=== PATIENT | male | born 2000 | race Caucasian/White ===

== ENCOUNTER 2018-08-21 18:47 | Emergency (ER) | payer MEDICAID, OTHER ==
[2018-08-21 19:22] VITALS: BP 145/99; PULSE 84; O2SAT 98
--- NOTE | 2018-08-21 19:36 | ERPHSYRPT ---
- History of Present Illness Time Seen by Provider: 08/21/18 19:29 Source: patient, family Exam Limitations: no limitations Patient Subjective Stated Complaint: pt states he was getting off work tonight and took a drink and felt like there was something stuck in the back of his throat; pt has had a recent h/o tonsil stones and thought that was what it was; pt looked in the back of his throat and has something on the far back of his tongue at the proximal opening of the throat. Triage Nursing Assessment: pt a&o x3; skin p, w, & d; pt presents very anxious and concerned; denies any difficulty swallowing or breathing; ambulated to room per self; family at bedside. Physician History: pt has no instance of choking, no fever, no nodes- but does feel something in throat . discussed risk. benefit with pt and he declines CT, will have soft tissue film; declines other w/u at this itme and has the capacity to make these choices with normal mental status; no FB seen on throat exam , nontender , soft digastric tringle and floor of mouth; no meningismus; no rash ; Timing/Duration: abrupt onset Severity: mild ENT Location: throat Prearrival Treatment: no prearrival treatment Modifying Factors: Improves With: nothing Associated Symptoms: sore throat, No cough, No fever, No chills, No drooling, No facial pain/swelling, No headache, No nasal congestion/drainage, No neck pain , No swollen glands, No sinus infection, No tooth pain, No difficulty swallowing , No voice change Allergies/Adverse Reactions: Penicillins Allergy (Intermediate, Verified 08/21/18 19:22) Hives Home Medications: No Reportable Medications [No Reported Medications] 08/21/18 [History] Hx Tetanus, Diphtheria Vaccination/Date Given: Yes Hx Influenza Vaccination/Date Given: No Hx Pneumococcal Vaccination/Date Given: Yes Immunizations Up to Date: No - Review of Systems Constitutional: No Fever, No Chills Eyes: No Symptoms Ears, Nose, & Throat: No Symptoms, Other (feels like something in throat), No Throat Pain, No Throat Swelling, No Hoarse, No Painful Swallowing Respiratory: No Cough, No Dyspnea Cardiac: No Chest Pain, No Edema, No Syncope Abdominal/Gastrointestinal: No Abdominal Pain, No Nausea, No Vomiting, No Diarrhea Genitourinary Symptoms: No Dysuria Musculoskeletal: No Back Pain, No Neck Pain Skin: No Rash Neurological: No Dizziness, No Focal Weakness, No Sensory Changes Psychological: No Symptoms Endocrine: No Symptoms All Other Systems: Reviewed and Negative - Past Medical History Pertinent Past Medical History: Yes Neurological History: No Pertinent History ENT History: No Pertinent History Cardiac History: Other Respiratory History: Other Endocrine Medical History: No Pertinent History Musculoskeletal History: No Pertinent History GI Medical History: No Pertinent History History: No Pertinent History Psycho-Social History: Anxiety Male Reproductive Disorders: No Pertinent History Other Medical History: PULMONARY STENOSIS - Past Surgical History Past Surgical History: No - Social History Smoking Status: Never smoker Exposure to second hand smoke: Yes Alcohol Use: None Drug Use: none Patient Lives Alone: No Significant Family History: no pertinent family hx - Nursing Vital Signs Nursing Vital Signs: Initial Vital Signs Temperature 97.8 F 08/21/18 19:09 Pulse Rate 84 08/21/18 19:09 Respiratory Rate 26 H 08/21/18 19:09 Blood Pressure 145/99 08/21/18 19:09 O2 Sat by Pulse Oximetry 98 08/21/18 19:09 Pain Scale Pain Intensity 0 - Physical Exam General Appearance: no apparent distress, alert Eye Exam: bilateral eye: normal inspection, PERRL, EOMI Ear Exam: bilateral ear: auricle normal, canal normal, TM normal Nasal Exam: normal inspection Throat Exam: normal, pharynx normal, moist mucus membranes, No dental tenderness , No excessive drooling, No foreign body, No mandibular swelling, No maxillary swelling, No tonsillar exudate Neck Exam: normal inspection, non-tender, supple, full range of motion, trachea midline Cardiovascular/Respiratory Exam: normal breath sounds, regular rate/rhythm Abdominal Exam: non-tender, soft Neurologic Exam: alert, oriented x 3, sensation nml, No motor deficits Skin Exam: normal color, warm, dry SpO2 Interpretation: normal SpO2: 98 - Course Nursing assessment & vital signs reviewed: Yes - Radiology Exams Other X-ray Interpretation: Reviewed by Kevin aroral Soft Tissues Ordered Tests: Active Orders 24 hr Category Date Time Status NECK SOFT TISSUE Stat Exams 08/21/18 19:39 Taken Medication Summary Discontinued Medications Generic Name Dose Route Start Last Admin Trade Name Freq PRN Reason Stop Dose Admin Lorazepam 1 mg 08/21/18 19:41 10/20/18 19:44 Ativan 1 Mg PO 08/21/18 19:42 1 mg STAT ONE Administration Lorazepam Confirm 08/21/18 19:43 Ativan 1 Mg Administered 08/21/18 19:44 Dose 1 mg .ROUTE .STK-MED ONE - Progress Progress: improved, re-examined Progress Note: 08/21/18 20:16 pt advised of limitations of evel performed and that undetected pathology may be evolving thus with need for f/u as advised; he prefers outpt f/u rathrer than further w/u in ER and that is reasonable given his degree of symptoms at this time and he has the capacity to make this choice; Counseled pt/family regarding: diagnosis, need for follow-up, rad results - Departure Time of Disposition: 20:10 Departure Disposition: Home Clinical Impression: Throat symptom Condition: Good Critical Care Time: No Referrals: JULIUS STONE MD [Primary Care Provider] - Additional Instructions: followup with your Dr[facility]te for further evaluation of symptoms- final radiologist reading will be performed on Thursday. Return meantime if any problems swallowing or other concerns;
[2018-08-21] MEDS ORDERED: Ativan 1 MG PO ONE (19:41)
[2018-08-21] MEDS ORDERED: Ativan 1 MG ONE (19:43)
--- NOTE | 2018-08-21 22:28 | XRAY ---
Indication: Possible foreign body. Comparison: None AP/lateral soft tissue neck demonstrates a few dental amalgams. Otherwise negative for radiopaque foreign body. No bony, articular, or soft tissue abnormalities.
== END 2018-08-21 20:23 | disposition home or self-care (01) ==
LOC: ED 18:47
DX: R09.89 Other specified symptoms and signs involving the circulatory and respiratory systems (principal); F41.9 Anxiety disorder, unspecified
CPT/HCPCS: 70360; 99283; A9270-GY

== ENCOUNTER 2023-01-11 12:24 | Emergency (ER) | payer OTHER ==
[2023-01-11] MEDS ORDERED: TORAdol 30 mg Injection IV ONE ×2 (12:47→14:34)
[2023-01-11] MEDS ORDERED: Sodium Chloride 0.9% 1000 ML 1,000 ML IV STA (12:47)
[2023-01-11 12:51] LABS: Appearance Clear (Clear); Bacteria None Seen /HPF (None Seen); Bilirubin Negative (Negative); Blood Negative (Negative); Epithelial Cells None Seen /HPF (None Seen); Glucose, Urine Negative (Negative); Hyaline Casts NONE SEEN /LPF (0-2); Ketones Negative (Negative); Leukocyte Esterase Negative (Negative); Nitrite Negative (Negative); Ph 8.5 (4.6-8.0); Protein,Urine Dip Negative (Negative); RBC 0-2 /HPF (0-5); Urobilinogen 0.2 mg/dL (0.2); WBC 0-2 /HPF (0-5)
[2023-01-11 12:54] LABS: ADD URINE CULTURE? NO (NO)
[2023-01-11 13:00] VITALS: BP 129/72; O2SAT 97
[2023-01-11 13:02] LABS: Amphetamine,Urine NEGATIVE (NEGATIVE); Barbiturate,Urine NEGATIVE (NEGATIVE); Benzodiazepine,Urine NEGATIVE (NEGATIVE); Cocaine,Urine NEGATIVE (NEGATIVE); Methadone,Urine NEGATIVE (NEGATIVE); Opiate,Urine NEGATIVE (NEGATIVE); PCP,Urine NEGATIVE (NEGATIVE); THC,Urine NEGATIVE (NEGATIVE)
[2023-01-11] MEDS ORDERED: Sodium Chloride 0.9% 1000 ML 1,000 ML ONE (13:09)
[2023-01-11] MEDS ORDERED: TORAdol 30 mg Injection ONE ×2 (13:09→14:53)
[2023-01-11 13:21] LABS: Absolute Neutrophil Ct (ANC) 11.62 x10^3/uL (1.4-6.9); BASOPHIL % 0.2 % (0.0-0.4); Basophil (Absolute #) 0.02 x10^3/uL (0-0.4); Eosinophil % 0.1 % (0.00-5.0); Eosinophil (Absolute #) 0.01 x10^3/uL (0-0.5); Hematocrit 45.9 % (42-50); Hemoglobin 15.4 g/dL (12.5-18.0); IMMATURE GRAN # 0.04 x10^3u/L (0.00-0.03); IMMATURE GRAN % 0.3 % (0.00-0.4); Lymphocyte (Absolute #) 0.92 x10^3/uL (1.0-4.6); Mean Cell Volume 88.6 fL (78-100); Mean Corpuscular Hemoglobin 29.7 pg (26-32); Mean Corpuscular Hgb Concent. 33.6 g/dL (32-36); Mean Platelet Volume 10.7 fL (7.5-11.0); Monocyte (Absolute #) 0.59 x10^3/uL (0.0-1.3); Monocytes % 4.5 % (0.0-12.0); Neutrophil % 87.9 % (36.0-66.0); Platelet Count 192 x10^3/uL (150-450); Red Blood Count 5.18 x10^6/uL (4.1-5.6); Red Cell Distribution Width 11.9 % (11.5-14.0); White Blood Count 13.2 x10^3/uL (4.0-10.5)
--- NOTE | 2023-01-11 13:26 | ERPHSYRPT ---
- History of Present Illness Time Seen by Provider: 01/11/23 13:24 Source: patient, family Exam Limitations: no limitations Patient Subjective Stated Complaint: flank pain, back pain. Triage Nursing Assessment: pt to ED c/o lower bilateral back pain x 1 week approx. pt stated that today he has been freezing cold and cant get warm. had 1 dose ibuprofen this morning with no relief. pt states that as a child he used to get kidney infections. Physician History: Patient is 22-year-old male with significant past medical history of childhood kidney infection started having generalized body ache backache for 1 week but to day he started having a fever with chills. So he came to the emergency room. He denies any burning urination nausea vomiting diarrhea chest pain shortness of breath. His main complaint is severe headache. Patient did not have this type of symptoms in the past. Timing/Duration: week(s) (one week) Fever Severity: moderate Fever Therapy [employer]: Ibuprofen Associated Symptoms: headache, muscle aches, No abdominal pain, No chest pain, No confusion, No cough, No nausea/vomiting, No rash, No rhinorrhea, No shortness of breath, No sore throat, No stiff neck, No syncope, No weakness Allergies/Adverse Reactions: Penicillins Allergy (Intermediate, Verified 08/21/18 19:22) Hives Hx Tetanus, Diphtheria Vaccination/Date Given: Yes Hx Influenza Vaccination/Date Given: No Hx Pneumococcal Vaccination/Date Given: Yes Immunizations Up to Date: Yes Travel Risk - International Travel Have you traveled outside of the country in past 3 weeks: No - Coronavirus Screening Are you exhibiting any of the following symptoms?: Yes Symptoms: Fever, Headaches/Body Aches/Fatigue Close contact with a COVID-19 positive Pt in past 14-21 Days: No - Vaccine Status Have you recieved a Covid-19 vaccination: No - Review of Systems Constitutional: Fever, Chills, Fatigue Eyes: No Symptoms Ears, Nose, & Throat: No Symptoms Respiratory: No Cough, No Dyspnea Cardiac: No Chest Pain, No Edema, No Syncope Abdominal/Gastrointestinal: No Abdominal Pain, No Nausea, No Vomiting, No Diarrhea Genitourinary Symptoms: No Dysuria Musculoskeletal: Back Pain, No Neck Pain Skin: No Rash Neurological: No Dizziness, No Focal Weakness, No Sensory Changes Psychological: No Symptoms Endocrine: No Symptoms All Other Systems: Reviewed and Negative - Past Medical History Pertinent Past Medical History: Yes Neurological History: No Pertinent History ENT History: No Pertinent History Cardiac History: Other Respiratory History: Other Endocrine Medical History: No Pertinent History Musculoskeletal History: No Pertinent History GI Medical History: No Pertinent History History: No Pertinent History Psycho-Social History: Anxiety Male Reproductive Disorders: No Pertinent History Other Medical History: PULMONARY STENOSIS - Past Surgical History Past Surgical History: No - Social History Smoking Status: Never smoker Exposure to second hand smoke: No Alcohol Use: None Drug Use: none Patient Lives Alone: No Significant Family History: no pertinent family hx - Nursing Vital Signs Nursing Vital Signs: Initial Vital Signs Temperature 103.1 F 01/11/23 12:33 Pulse Rate 97 H 01/11/23 12:33 Respiratory Rate 20 01/11/23 12:33 Blood Pressure 129/72 01/11/23 12:33 O2 Sat by Pulse Oximetry 97 01/11/23 12:33 Pain Scale Pain Intensity [Lower 10 Posterior Back] Pain Intensity 8 - Physical Exam General Appearance: mild distress, alert Eye Exam: PERRL/EOMI ENT Exam: normal ENT inspection, No pharyngeal erythema, No tonsillar exudate Neck Exam: supple, full range of motion, No meningismus Respiratory Exam: normal breath sounds, lungs clear, no respiratory distress Cardiovascular/Chest Exam: normal heart sounds, regular rate/rhythm, No murmur, No edema Gastrointestinal/Abdominal Exam: soft, non tender, no distention Extremity Exam: non-tender, normal range of motion, normal inspection, normal capillary refill Neurologic Exam: alert, oriented x 3, cooperative, babcock tester II-XII nml as tested, normal mood/affect, sensation nml, No motor deficits Skin Exam: normal color, warm, dry, No rash SpO2: 97 - Course Nursing assessment & vital signs reviewed: Yes - Radiology Exams Chest X-ray Interpretation: Reviewed by me, Negative, No Pneumonia L-Spine X-ray Interpretation: Reviewed by me, Negative, No Fracture Ordered Tests: Active Orders 24 hr Category Date Time Status CHEST 2 VIEWS (PA AND LAT) Stat Exams 01/11/23 12:49 Taken LUMBAR LIMITED (2 OR 3 VIEWS) Stat Exams 01/11/23 12:40 Taken CBC W DIFF Stat Lab 01/11/23 13:17 Completed CMP Stat Lab 01/11/23 13:17 Completed UA W/RFX UR CULTURE Stat Lab 01/11/23 12:40 Completed Urine Triage Profile Stat Lab 01/11/23 12:40 Completed Medication Summary Discontinued Medications Generic Name Dose Route Start Last Admin Trade Name Evangelina PRN Reason Stop Dose Admin Sodium Chloride 1,000 mls @ 999 mls/hr 01/11/23 12:47 01/11/23 14:25 Sodium Chloride 0.9% 1000 Ml IV 01/11/23 13:47 Infused .Q1H1M STA Infusion Sodium Chloride Confirm 01/11/23 13:09 Sodium Chloride 0.9% 1000 Ml Administered 01/11/23 13:10 Dose 1,000 mls @ ud .ROUTE .STK-MED ONE Ceftriaxone Sodium/Dextrose 1 g in 50 mls @ 100 mls/hr 01/11/23 13:27 01/11/23 14:25 Rocephin 1 Gm-D5w 50 Ml Bag IV 01/11/23 13:56 Infused STAT STA Infusion Ceftriaxone Sodium/Dextrose Confirm 01/11/23 13:37 Rocephin 1 Gm-D5w 50 Ml Bag Administered 01/11/23 13:38 Dose 1 g in 50 mls @ ud IV .STK-MED ONE Ketorolac Tromethamine 30 mg 01/11/23 12:47 01/11/23 13:22 Ketorolac Tromethamine 30 Mg/Ml Inj IV 01/11/23 12:48 30 mg STAT ONE Administration Ketorolac Tromethamine Confirm 01/11/23 13:09 Ketorolac Tromethamine 30 Mg/Ml Inj Administered 01/11/23 13:10 Dose 30 mg .ROUTE .STK-MED ONE Lab/Rad Data: Laboratory Result Diagrams 01/11/23 13:17 01/11/23 13:17 Laboratory Results 01/11/23 01/11/23 01/11/23 Range/Units 13:17 13:17 12:53 WBC 13.2 H (4.0-10.5) x10^3/uL RBC 5.18 (4.1-5.6) x10^6/uL Hgb 15.4 (12.5-18.0) g/dL Hct 45.9 (42-50) % MCV 88.6 (78-100) fL MCH 29.7 (26-32) pg MCHC 33.6 (32-36) g/dL RDW 11.9 (11.5-14.0) % Plt Count 192 (150-450) x10^3/uL MPV 10.7 (7.5-11.0) fL Gran % 87.9 H (36.0-66.0) % Immature Gran % (Auto) 0.3 (0.00-0.4) % Nucleat RBC Rel Count 0.0 (0.00-0.1) % Eos # (Auto) 0.01 (0-0.5) x10^3/uL Immature Gran # (Auto) 0.04 H (0.00-0.03) x10^3u/L Absolute Lymphs (auto) 0.92 L (1.0-4.6) x10^3/uL Absolute Monos (auto) 0.59 (0.0-1.3) x10^3/uL Absolute Nucleated RBC 0.00 (0.00-0.01) x10^3u/L Lymphocytes % 7.0 L (24.0-44.0) % Monocytes % 4.5 (0.0-12.0) % Eosinophils % 0.1 (0.00-5.0) % Basophils % 0.2 (0.0-0.4) % Absolute Granulocytes 11.62 H (1.4-6.9) x10^3/uL Basophils # 0.02 (0-0.4) x10^3/uL Sodium 139 (137-145) mmol/L Potassium 3.6 (3.5-5.1) mmol/L Chloride 102 (98-107) mmol/L Carbon Dioxide 25 (22-30) mmol/L Anion Gap 15.8 H (5-15) MEQ/L BUN 12 (9-20) mg/dL Creatinine 1.01 (0.66-1.25) mg/dL Estimated GFR > 60.0 ML/MIN Glucose 102 (74-106) mg/dL Calcium 9.5 (8.4-10.2) mg/dL Total Bilirubin 1.00 (0.2-1.3) mg/dL AST 29 (17-59) U/L ALT 28 (0-50) U/L Alkaline Phosphatase 94 (38-126) U/L Serum Total Protein 9.0 H (6.3-8.2) g/dL Albumin 5.0 (3.5-5.0) g/dL Urine Color (Yellow) Urine Appearance (Clear) Urine pH (4.6-8.0) Ur Specific [place] (1.005-1.030) Urine Protein (Negative) Urine Glucose (UA) (Negative) mg/dL Urine Ketones (Negative) Urine Blood (Negative) Urine Nitrite (Negative) Urine Bilirubin (Negative) Urine Urobilinogen (0.2) mg/dL Ur Leukocyte Esterase (Negative) U Hyaline Cast (Auto) (0-2) /LPF Urine Microscopic RBC (0-5) /HPF Urine Microscopic WBC (0-5) /HPF Ur Epithelial Cells (None Seen) /HPF Urine Bacteria (None Seen) /HPF Urine Culture Reflexed (NO) Urine Opiates Level (NEGATIVE) Ur Methadone (NEGATIVE) Urine Barbiturates (NEGATIVE) Ur Phencyclidine (PCP) (NEGATIVE) Urine Amphetamine (NEGATIVE) U Benzodiazepine Level (NEGATIVE) Urine Cocaine (NEGATIVE) Urine Marijuana (THC) (NEGATIVE) Influenza Type A Ag NEGATIVE (NEGATIVE) Influenza Type B Ag NEGATIVE (NEGATIVE) RSV (PCR) NEGATIVE (Negative) SARS-CoV-2 (PCR) NEGATIVE (NEGATIVE) 01/11/23 01/11/23 Range/Units 12:40 12:40 WBC (4.0-10.5) x10^3/uL RBC (4.1-5.6) x10^6/uL Hgb (12.5-18.0) g/dL Hct (42-50) % MCV (78-100) fL MCH (26-32) pg MCHC (32-36) g/dL RDW (11.5-14.0) % Plt Count (150-450) x10^3/uL MPV (7.5-11.0) fL Gran % (36.0-66.0) % Immature Gran % (Auto) (0.00-0.4) % Nucleat RBC Rel Count (0.00-0.1) % Eos # (Auto) (0-0.5) x10^3/uL Immature Gran # (Auto) (0.00-0.03) x10^3u/L Absolute Lymphs (auto) (1.0-4.6) x10^3/uL Absolute Monos (auto) (0.0-1.3) x10^3/uL Absolute Nucleated RBC (0.00-0.01) x10^3u/L Lymphocytes % (24.0-44.0) % Monocytes % (0.0-12.0) % Eosinophils % (0.00-5.0) % Basophils % (0.0-0.4) % Absolute Granulocytes (1.4-6.9) x10^3/uL Basophils # (0-0.4) x10^3/uL Sodium (137-145) mmol/L Potassium (3.5-5.1) mmol/L Chloride (98-107) mmol/L Carbon Dioxide (22-30) mmol/L Anion Gap (5-15) MEQ/L BUN (9-20) mg/dL Creatinine (0.66-1.25) mg/dL Estimated GFR ML/MIN Glucose (74-106) mg/dL Calcium (8.4-10.2) mg/dL Total Bilirubin (0.2-1.3) mg/dL AST (17-59) U/L ALT (0-50) U/L Alkaline Phosphatase (38-126) U/L Serum Total Protein (6.3-8.2) g/dL Albumin (3.5-5.0) g/dL Urine Color Yellow (Yellow) Urine Appearance Clear (Clear) Urine pH 8.5 A (4.6-8.0) Ur Specific [place] 1.010 (1.005-1.030) Urine Protein Negative (Negative) Urine Glucose (UA) Negative (Negative) mg/dL Urine Ketones Negative (Negative) Urine Blood Negative (Negative) Urine Nitrite Negative (Negative) Urine Bilirubin Negative (Negative) Urine Urobilinogen 0.2 (0.2) mg/dL Ur Leukocyte Esterase Negative (Negative) U Hyaline Cast (Auto) NONE SEEN (0-2) /LPF Urine Microscopic RBC 0-2 (0-5) /HPF Urine Microscopic WBC 0-2 (0-5) /HPF Ur Epithelial Cells None Seen (None Seen) /HPF Urine Bacteria None Seen (None Seen) /HPF Urine Culture Reflexed NO (NO) Urine Opiates Level NEGATIVE (NEGATIVE) Ur Methadone NEGATIVE (NEGATIVE) Urine Barbiturates NEGATIVE (NEGATIVE) Ur Phencyclidine (PCP) NEGATIVE (NEGATIVE) Urine Amphetamine NEGATIVE (NEGATIVE) U Benzodiazepine Level NEGATIVE (NEGATIVE) Urine Cocaine NEGATIVE (NEGATIVE) Urine Marijuana (THC) NEGATIVE (NEGATIVE) Influenza Type A Ag (NEGATIVE) Influenza Type B Ag (NEGATIVE) RSV (PCR) (Negative) SARS-CoV-2 (PCR) (NEGATIVE) - Progress Progress: improved, pain not gone completely Progress Note: 01/11/23 14:35 In the emergency room patient was given IV fluid IV antibiotic ceftriaxone as well as intravenously ketorolac 30 mg IV which did help him for his back pain as well as took 50% headache improvement. Patient fever also broke. Lab values are discussed with the patient and his significant others. Except for white blood cell count which is 13,500 all other labs are unremarkable including chest x-ray and x-ray of the lumbar spine. Patient is informed that he might have a some type of bacterial infection or viral infection, but we are unable to find out the source so at this point of time we are planning to treat each presumptively with antibiotic and symptomatic treatment for headache and fever. Patient understood all verbalized instruction. Counseled pt/family regarding: lab results, diagnosis, need for follow-up, rad results Medical Desision Making - Independent Historian Additional History obtained from: Family - Discussion of managment Reviewed:: Test results, Need for additional workup Agreed on:: Treatment plan, need for follow-up - Diagnostic Testing Diagnostic test were ordered, analyzed, and reviewed by me: Yes Radiological Interpretation: Interpreted by me, Reviewed by me - Risk of complications The pt has a mod risk of morbidity or mortality based on: Need for prescription drug management - Departure Departure Disposition: Home Clinical Impression: History of kidney infection Fever Qualifiers: Fever type: due to other condition Qualified Code(s): R50.81 - Fever presenting with conditions classified elsewhere Leucocytosis Qualifiers: Leukocytosis type: unspecified Qualified Code(s): D72.829 - Elevated white blood cell count, unspecified Condition: Stable Critical Care Time: Yes Critical Care Time(excluding separately billable procedures): Critical 75-104 mins Referrals: JULIUS STONE MD [Primary Care Provider] - Follow Up with PCP/3 days Instructions: Fever, Adult (DC) Additional Instructions: Discharge/Care Plan KATHI ARDON was seen on 01/11/23 in the Emergency Room. The patient was counseled regarding Diagnosis,Lab results, Imaging studies, need for follow up and when to return to the Emergency Room. Prescriptions given: Discharge Note I have spoken with the patient and/or caregivers. I have explained the patient's condition, diagnosis and treatment plan based on the information available to me at this time. I have answered the patient's and/or caregiver's questions and addressed any concerns. The patient and/or caregivers have as good understanding of the patient's diagnosis, condition and treatment plan as can be expected at this point. The vital signs have been stable. The patient's condition is stable and appropriate for discharge from the emergency department. The patient will pursue further outpatient evaluation with the primary care physician or other designated or consulting physician as outlined in the discharge instructions. The patient and/or caregivers are agreeable to this plan of care and follow-up instructions have been explained in detail. The patient and/or caregivers have received these instruction. The patient/and or caregivers are aware that any significant change in condition or worsening of symptoms should prompt an immediate return to this or the closest emergency department or call 911. KATHI ARDON was seen on 01/11/23 n the Emergency Room. At that time you were treated for an emergent condition, during your visit Laboratory, Radiology and/or other procedures may have been ordered. It is very important that you follow-up with your Primary Care Physician JULIUS STONE within the next 24- 48 hours to review your Emergency Room visit and the final results of testing that was ordered. Some test results such as Urine Cultures, Blood Cultures, and other cultures if ordered will not be finalized for 24-48 hours. If you do not have a Primary Care Provider please call the medical records department at [phone] to obtain a copy of your results or you may sign into our patient portal to obtain these results by visiting us @ [email or web address] and completing the following steps: 1. Click on the Patient Portal link 2. Click the Patient Self Enrollment Link to complete the enrollment form and entering your 3. Once the enrollment form is completed you will receive an email with a temporary ID and password at the email address you provided. 4. Next choose a user name and password. Your user name must be at least 4 characters long and your password must be at least 4 characters long. 5. Choose a security question from the list and provide your answer to the question. If you already have signed into the Health Portal you may access your Health Care Information 25/05 by the following steps: 1. Login to our website @ [email or web address] 2. Enter your original user name and password. FAQS The [facility] Health Portal is an online tool that contains your Lab Results, Radiology Reports, Visit History, Discharge Instructions and Health Summary Lab and Radiology Results will not be available for 72 hours on the portal. The Portal is a secure site, passwords are encryted and URLs are re-written so they cannot be copied and pasted. You and authorized family members are the only ones who can access your Portal. Also there is a timeout feature that protects your information if you leave the Portal page open. If you have technical difficulty please use the Contact Us link on the page this will allow you to submit any questions you have regarding the Portal or you may contact the Medical Record Department at [phone]. Prescriptions: Azithromycin [Azithromycin 250 mg Pack] 250 mg PO UD #6 tablet Naproxen 375 mg [Naprosyn 375 mg] 375 mg PO Q8H #30 tablet
[2023-01-11] MEDS ORDERED: ROCEPHIN 1 Gm-D5w 50 ml Bag** 1 G/50 ML IVPB IV STA (13:27)
[2023-01-11 13:32] LABS: ALKALINE PHOSPHATASE 94 U/L (38-126); ANION GAP 15.8 MEQ/L (5-15); BLOOD UREA NITROGEN 12 mg/dL (9-20); CHLORIDE 102 mmol/L (98-107); Calcium 9.5 mg/dL (8.4-10.2); Carbon Dioxide 25 mmol/L (22-30); Creatinine 1 1.01 mg/dL (0.66-1.25); EST GLOMERULAR FILTRATION RATE > 60.0 ML/MIN; Glucose 102 mg/dL (74-106); Potassium 3.6 mmol/L (3.5-5.1); SGOT/AST 29 U/L (17-59); SGPT/ALT 28 U/L (0-50); SODIUM 139 mmol/L (137-145)
[2023-01-11 13:32] LABS: INFLUENZA A NEGATIVE (NEGATIVE); INFLUENZA B NEGATIVE (NEGATIVE); RESPIRATORY SYNCTIAL VIRUS NEGATIVE (Negative); SARS-CoV-2 Xpert Express NEGATIVE (NEGATIVE)
[2023-01-11] MEDS ORDERED: ROCEPHIN 1 Gm-D5w 50 ml Bag** 1 G/50 ML IVPB IV ONE (13:37)
[2023-01-11] MEDS ORDERED: BENADRYL 50 MG/ML IV ONE (14:34)
[2023-01-11 14:53] VITALS: PULSE 92
[2023-01-11] MEDS ORDERED: BENADRYL 50 MG/ML ONE (14:53)
--- NOTE | 2023-01-11 19:17 | XRAY ---
Indication: Fever and chills. Comparison: March 25, 2012 PA/lateral chest again demonstrates normal heart, lungs, and bony thorax. New incidental left lower lobe calcified granuloma.
--- NOTE | 2023-01-11 19:17 | XRAY ---
Indication: Low back pain 1 week. No known injury. Comparison: None 3 view lumbar spine demonstrates 5 lumbar segments in normal alignment with vertebral body heights/disc spaces maintained. Mild fecal debris predominantly in right hemicolon. No other bony, articular, or soft tissue abnormalities.
== END 2023-01-11 15:11 | disposition home or self-care (01) ==
LOC: ED 12:24
DX: D72.829 Elevated white blood cell count, unspecified (principal); R50.9 Fever, unspecified; Z87.440 Personal history of urinary (tract) infections; R51.9 Headache, unspecified; M54.9 Dorsalgia, unspecified; Z28.310 Unvaccinated for COVID-19
CPT/HCPCS: 0241U; 36415; 71046; 72100; 80053; 80307; 81001; 85025; 96360; 96365; 96374; 96375; 96376; 99284; 99291; 99292; J0696; J1200; J1885

== ENCOUNTER 2024-05-30 19:28 | Emergency (ER) | payer OTHER ==
[2024-05-30 19:36] VITALS: TEMP 97.4
[2024-05-30] MEDS: BABY ASPIRIN 81 MG CHEW PO ONE (20:04)
[2024-05-30] MEDS ORDERED: BABY ASPIRIN 81 MG CHEW ONE (20:04)
[2024-05-30 20:08] LABS: Absolute Neutrophil Ct (ANC) 5.45 x10^3/uL (1.78-5.38); BASOPHIL % 0.2 % (0.2-1.2); Basophil (Absolute #) 0.02 x10^3/uL (0.01-0.08); Eosinophil % 2.7 % (0.8-7.0); Eosinophil (Absolute #) 0.22 x10^3/uL (0.04-0.54); Hematocrit 44.2 % (40.1-51.0); Hemoglobin 14.9 g/dL (13.7-17.5); IMMATURE GRAN # 0.02 x10^3u/L (0.001-0.031); IMMATURE GRAN % 0.2 % (0.001-0.429); Lymphocyte (Absolute #) 1.75 x10^3/uL (1.32-3.57); Lymphocytes % 21.5 % (21.8-53.1); Mean Cell Volume 87.9 fL (79.0-92.2); Mean Corpuscular Hemoglobin 29.6 pg (25.7-32.2); Mean Corpuscular Hgb Concent. 33.7 g/dL (32.3-36.5); Mean Platelet Volume 10.9 fL (9.4-12.4); Monocyte (Absolute #) 0.67 x10^3/uL (0.30-0.82); Monocytes % 8.2 % (5.3-12.2); Neutrophil % 67.2 % (34.0-67.9); Platelet Count 223 x10^3/uL (163-337); Red Blood Count 5.03 x10^6/uL (4.63-6.08); Red Cell Distribution Width 11.9 % (11.6-14.4); White Blood Count 8.1 x10^3/uL (4.23-9.07)
[2024-05-30 20:48] LABS: ALBUMIN 4.5 g/dL (3.5-5.0); ANION GAP 16.6 MEQ/L (5-15); BILIRUBIN,TOTAL 0.3 mg/dL (0.2-1.3); Calcium 9.7 mg/dL (8.4-10.2); Creatinine 1 0.98 mg/dL (0.66-1.25); EST GLOMERULAR FILTRATION RATE 109.1 ML/MIN; Potassium 3.7 mmol/L (3.5-5.1); Total Protein 7.6 g/dL (6.3-8.2)
[2024-05-30 20:52] LABS: LIPASE 102 U/L (23-300); MAGNESIUM 2.4 mg/dL (1.6-2.3); TROPONIN < 0.012 ng/mL (0.000-0.033)
--- NOTE | 2024-05-30 20:55 | ERPHSYRPT ---
- History of Present Illness Time Seen by Provider: 05/30/24 19:58 Historian: patient Exam Limitations: no limitations Patient Subjective Stated Complaint: pt states he has been having chest pain for the last month, last 3 days have been worse and todayhas some shortness of breath, weakness. Triage Nursing Assessment: pt alert and oriented. answers questions approp. pt ambulates into room with steady gait ntoed. respirations nonlabored with wily ngs cta. heart rate 74, sinus rhythm on monitor. Physician History: 24 years old with questionable history of pulmonary stenosis presented in the ER with complains of off-and-on chest pain for almost 1 month. Patient reports having dull aching pressure in the center of the chest most of the day, gets better with sleeping. Denies associated palpitations but does hurt to take a deep breath at times. Denies shortness of breath otherwise. No cough fever or chills reported. Denies any history of GERD symptoms. Does not follow-up with cardiology. Patient reports his chest pain was worse earlier today and decided to be seen but currently has minimal discomfort/pressure and does not want any treatment for it. Aspirin Treatment Today: no aspirin today Allergies/Adverse Reactions: Penicillins Allergy (Intermediate, Verified 05/30/24 19:47) Hives Hx Tetanus, Diphtheria Vaccination/Date Given: Yes Hx Influenza Vaccination/Date Given: No Hx Pneumococcal Vaccination/Date Given: No Immunizations Up to Date: Yes Travel Risk - International Travel Have you traveled outside of the country in past 3 weeks: No - Emerging Infectious Disease Are you exhibiting symptoms associated with any current EIDs: No - Review of Systems Constitutional: No Symptoms Ears, Nose, & Throat: No Symptoms Respiratory: No Symptoms Cardiac: Chest Pain Abdominal/Gastrointestinal: No Symptoms Genitourinary Symptoms: No Symptoms Musculoskeletal: No Symptoms Skin: No Symptoms Neurological: No Symptoms Psychological: No Symptoms Endocrine: No Symptoms Hematologic/Lymphatic: No Symptoms Immunological/Allergic: No Symptoms - Past Medical History Pertinent Past Medical History: Yes Neurological History: No Pertinent History ENT History: No Pertinent History Cardiac History: Hypertension, Other Respiratory History: Other Endocrine Medical History: No Pertinent History Musculoskeletal History: No Pertinent History GI Medical History: No Pertinent History History: No Pertinent History Psycho-Social History: Anxiety Male Reproductive Disorders: No Pertinent History Other Medical History: pulmonary valve stenosis, heart murmur - Past Surgical History Past Surgical History: No Significant Family History: no pertinent family hx - Social History Smoking Status: Never smoker Exposure to second hand smoke: No Alcohol Use: None Drug Use: none Patient Lives Alone: No - Social Determinants of Health Will the patient participate in the screening: Yes Do you worry about a steady place to live?: No Do you have any problems with any of the following?: No known problems In the past 12 months,have you had to go without utilities?: No Transportation Issues: No Has anyone in your support network made you feel unsafe?: No Have you or anyone in your house had to go without enough: No - Nursing Vital Signs Nursing Vital Signs: Initial Vital Signs Temperature 97.4 F 05/30/24 19:29 Pulse Rate 78 05/30/24 19:29 Respiratory Rate 18 05/30/24 19:29 Blood Pressure 130/79 05/30/24 19:29 O2 Sat by Pulse Oximetry 98 05/30/24 19:29 Pain Scale Pain Intensity 0 - Physical Exam General Appearance: no apparent distress, alert Eye Exam: PERRL/EOMI Ears, Nose, Throat Exam: normal ENT inspection, pharynx normal, moist mucous membranes Neck Exam: normal inspection, non-tender, supple, full range of motion Respiratory Exam: normal breath sounds, lungs clear Cardiovascular Exam: regular rate/rhythm, normal heart sounds Gastrointestinal/Abdomen Exam: soft, normal bowel sounds, No tenderness Back Exam: normal inspection, normal range of motion Extremity Exam: normal inspection, normal range of motion, pelvis stable Neurologic Exam: alert, oriented x 3, cooperative, pattern painter II-XII nml as tested Skin Exam: normal color SpO2 Interpretation: normal SpO2: 98 O2 Delivery: Room Air - Course EKG Interpreted by Me: RATE ([id number]), Sinus Rhythm, NORMAL AXIS, NORMAL INTERVALS, Non-specific ST Changes Ordered Tests: Active Orders 24 hr Category Date Time Status Director Of Patient Safety STAT Care 05/30/24 19:59 Active EKG-ER Only STAT Care 05/30/24 19:59 Active IV Insertion STAT Care 05/30/24 19:59 Active CHEST 1 VIEW (PORTABLE) Stat Exams 05/30/24 19:59 Taken CBC W DIFF Stat Lab 05/30/24 19:55 Completed CMP Stat Lab 05/30/24 20:20 Completed D-DIMER QUANTITATIVE Stat Lab 05/30/24 20:20 Completed LIPASE Stat Lab 05/30/24 20:20 Completed MAG [MAGNESIUM] Stat Lab 05/30/24 20:20 Completed NT PRO BNPII Stat Lab 05/30/24 20:20 Completed TROPONIN Q4H Lab 05/30/24 20:20 Completed TROPONIN Q4H Lab 05/31/24 00:00 Ordered TROPONIN Q4H Lab 05/31/24 04:00 Ordered TROPONIN Stat Lab 05/30/24 22:25 Completed Medication Summary Discontinued Medications Generic Name Dose Route Start Last Admin Trade Name Evangelina PRN Reason Stop Dose Admin Aspirin 324 mg 05/30/24 19:59 05/30/24 20:04 Aspirin 81 Mg Tab.Chew PO 05/30/24 20:00 324 mg STAT ONE Administration Aspirin Confirm 05/30/24 20:04 Aspirin 81 Mg Tab.Chew Administered 05/30/24 20:05 Dose 324 mg .ROUTE .STK-MED ONE Sodium Chloride 1,000 mls @ 999 mls/hr 05/30/24 21:49 05/30/24 22:52 Sodium Chloride 0.9% 1000 Ml IV 05/30/24 22:49 Infused .Q1H1M STA Infusion Sodium Chloride Confirm 05/30/24 21:51 Sodium Chloride 0.9% 1000 Ml Administered 05/30/24 21:52 Dose 1,000 mls @ ud .ROUTE .STK-MED ONE Lab/Rad Data: Laboratory Result Diagrams 05/30/24 19:55 05/30/24 20:20 Laboratory Results 05/30/24 05/30/24 05/30/24 Range/Units 22:25 20:20 20:20 WBC (4.23-9.07) x10^3/uL RBC (4.63-6.08) x10^6/uL Hgb (13.7-17.5) g/dL Hct (40.1-51.0) % MCV (79.0-92.2) fL MCH (25.7-32.2) pg MCHC (32.3-36.5) g/dL RDW (11.6-14.4) % Plt Count (163-337) x10^3/uL MPV (9.4-12.4) fL Gran % (34.0-67.9) % Immature Gran % (Auto) (0.001-0.429) % Nucleat RBC Rel Count (0.00-0.2) % Eos # (Auto) (0.04-0.54) x10^3/uL Immature Gran # (Auto) (0.001-0.031) x10^3u/L Absolute Lymphs (auto) (1.32-3.57) x10^3/uL Absolute Monos (auto) (0.30-0.82) x10^3/uL Absolute Nucleated RBC (0.00-0.012) x10^3u/L Lymphocytes % (21.8-53.1) % Monocytes % (5.3-12.2) % Eosinophils % (0.8-7.0) % Basophils % (0.2-1.2) % Absolute Granulocytes (1.78-5.38) x10^3/uL Basophils # (0.01-0.08) x10^3/uL D-Dimer (0.0-0.50) mg/L Sodium (135-145) mmol/L Potassium (3.5-5.1) mmol/L Chloride (98-107) mmol/L Carbon Dioxide (22-30) mmol/L Anion Gap (5-15) MEQ/L BUN (9-20) mg/dL Creatinine (0.66-1.25) mg/dL Estimated GFR ML/MIN Glucose (74-106) mg/dL Calcium (8.4-10.2) mg/dL Magnesium 2.4 H (1.6-2.3) mg/dL Total Bilirubin (0.2-1.3) mg/dL AST (17-59) U/L ALT (0-50) U/L Alkaline Phosphatase (38-126) U/L Troponin I < 0.012 < 0.012 (0.000-0.033) ng/mL NT-Pro-B Natriuret Pep < 20.0 (<300) pg/mL Serum Total Protein (6.3-8.2) g/dL Albumin (3.5-5.0) g/dL Lipase 102 (23-300) U/L 05/30/24 05/30/24 05/30/24 Range/Units 20:20 20:20 19:55 WBC 8.1 (4.23-9.07) x10^3/uL RBC 5.03 (4.63-6.08) x10^6/uL Hgb 14.9 (13.7-17.5) g/dL Hct 44.2 (40.1-51.0) % MCV 87.9 (79.0-92.2) fL MCH 29.6 (25.7-32.2) pg MCHC 33.7 (32.3-36.5) g/dL RDW 11.9 (11.6-14.4) % Plt Count 223 (163-337) x10^3/uL MPV 10.9 (9.4-12.4) fL Gran % 67.2 (34.0-67.9) % Immature Gran % (Auto) 0.2 (0.001-0.429) % Nucleat RBC Rel Count 0.0 (0.00-0.2) % Eos # (Auto) 0.22 (0.04-0.54) x10^3/uL Immature Gran # (Auto) 0.02 (0.001-0.031) x10^3u/L Absolute Lymphs (auto) 1.75 (1.32-3.57) x10^3/uL Absolute Monos (auto) 0.67 (0.30-0.82) x10^3/uL Absolute Nucleated RBC 0.00 (0.00-0.012) x10^3u/L Lymphocytes % 21.5 L (21.8-53.1) % Monocytes % 8.2 (5.3-12.2) % Eosinophils % 2.7 (0.8-7.0) % Basophils % 0.2 (0.2-1.2) % Absolute Granulocytes 5.45 H (1.78-5.38) x10^3/uL Basophils # 0.02 (0.01-0.08) x10^3/uL D-Dimer < 0.19 (0.0-0.50) mg/L Sodium 141 (135-145) mmol/L Potassium 3.7 (3.5-5.1) mmol/L Chloride 105 (98-107) mmol/L Carbon Dioxide 23 (22-30) mmol/L Anion Gap 16.6 H (5-15) MEQ/L BUN 16 (9-20) mg/dL Creatinine 0.98 (0.66-1.25) mg/dL Estimated GFR 109.1 ML/MIN Glucose 108 H (74-106) mg/dL Calcium 9.7 (8.4-10.2) mg/dL Magnesium (1.6-2.3) mg/dL Total Bilirubin 0.30 (0.2-1.3) mg/dL AST 37 (17-59) U/L ALT 46 (0-50) U/L Alkaline Phosphatase 68 (38-126) U/L Troponin I (0.000-0.033) ng/mL NT-Pro-B Natriuret Pep (<300) pg/mL Serum Total Protein 7.6 (6.3-8.2) g/dL Albumin 4.5 (3.5-5.0) g/dL Lipase (23-300) U/L - Progress Progress: improved, re-examined Air Movement: good Progress Note: 05/30/24 23:10 24 years old is evaluated for chest pains for over a month with some pleuritic element. Patient is not in any distress and pain is already improving on presentation in the ER. He is given aspirin and GI cocktail, on reevaluation pain is almost resolved. EKG is normal sinus rhythm with no ST elevation and negative troponins x 2. Chest x-ray negative for any acute cardiopulmonary findings reviewed by me, official report is pending. Normal white count, chemistries mild element of dehydration, given fluids. D-dimers are negative. With this pain going on for such a long time and negative troponins x 2 and negative D-dimers, I do not think patient needs further workup in the ER/needs hospitalization but can be discharged with outpatient follow-up. I would give him Protonix to go home as he possibly have some element of GERD with esophagitis causing his symptoms. I would also give him referral for cardiology with his questionable history of pulmonary stenosis. At this point patient is being discharged with outpatient follow-up. Discussed signs symptoms of worsening needing return to ER which she seems understanding. Stable for discharge. Blood Culture(s) Obtained: No Antibiotics given: No Counseled pt/family regarding: lab results, diagnosis, need for follow-up, rad results Medical Desision Making - Independent Historian Additional History obtained from: Spouse - Diagnostic Testing Diagnostic test were ordered, analyzed, and reviewed by me: Yes Radiological Interpretation: Interpreted by me, Reviewed by me - Risk of complications The pt has a mod risk of morbidity or mortality based on: Need for prescription drug management - Departure Departure Disposition: Home Clinical Impression: Chest pain, atypical, Dehydration Condition: Stable Critical Care Time: No Referrals: MIL GUZMAN MD [ACTIVE STAFF] - Follow up with PCP 1 day AGATHA YEPEZ [CONSULTING PHYSICIAN] - Follow up/PCP as directed (Call for appointment for reevaluation tomorrow.) Instructions: Angina (DC), Chest Pain (DC) Additional Instructions: Take Tylenol as needed. Follow-up with primary care/cardiology for reevaluation. Return to ER for worsening chest pain or if having palpitations/difficulty breathing etc. Prescriptions: PANTOPRAZOLE 40 mg Tablet [Protonix 40MG Tablet] 40 mg PO QAM #30 tab
[2024-05-30] MEDS: Sodium Chloride 0.9% 1000 ML 1,000 ML IV STA (21:51)
[2024-05-30] MEDS ORDERED: Sodium Chloride 0.9% 1000 ML 1,000 ML ONE (21:51)
[2024-05-30 23:10] VITALS: BP 125/75; PULSE 60; RESP 21; O2SAT 98
--- NOTE | 2024-05-31 08:51 | XRAY ---
Indication: Chest pain. Comparison: January 11, 2023 Portable chest again demonstrates normal heart, lungs, and bony thorax with incidental left lower lobe calcified granuloma.
== END 2024-05-30 23:23 | disposition home or self-care (01) ==
LOC: ED 19:28
DX: R07.89 Other chest pain (principal); E86.0 Dehydration; I10 Essential (primary) hypertension; Z79.899 Other long term (current) drug therapy
CPT/HCPCS: 36000; 36415; 71045; 80053; 83690; 83735; 83880; 84484; 85025; 85379; 93005; 93041; 99284; A9270-GY